=== PATIENT | male | born 1990 ===

== ENCOUNTER 2018-10-17 22:07 | Emergency (ER) | payer SELFPAY ==
[2018-10-17] MEDS ORDERED: DiphenhydrAMINE 50 mg/ml Inj IVP STA (22:33)
[2018-10-17] MEDS ORDERED: methylPREDNISolone 125 MG in Sodium Chloride 0.9% 50 ML IVP STA (22:33)
--- NOTE | 2018-10-17 22:42 | ED PDOC ---
HPI: Allergic Reaction Time Seen by Provider: 10/17/18 22:26 Chief Complaint (Nursing): Allergic Reaction History Per: Patient Additional Complaint(s): Pt. states since Wednesday he's had intermittent pruritic rash throughout his body. Has been taking Benadryl without relief. Today rash began to develop around his face prompting ED visit. Denies SOB, throat swelling, fever, hx of allergic reactions, hx of anaphylactic reactions. Past Medical History Reviewed: Historical Data, Nursing Documentation, Vital Signs Vital Signs: Last Vital Signs Temp 96.7 F L 10/17/18 22:11 Pulse 88 10/17/18 22:11 Resp 18 10/17/18 22:11 BP 139/86 10/17/18 22:11 Pulse Ox 98 10/17/18 22:11 - Family History Family History: States: No Known Family Hx - Home Medications Home Medications: Ambulatory Orders Medication Instructions Recorded Erythromycin 0.5% [Ilytocin] 5 mg OP BID #1 tube 07/14/16 Polymyxin/Trimethoprim Sulfate 100 drop OD BID #1 bottle 07/14/16 [Polytrim Ophth Soln] Methylprednisolone [Medrol Dose 4 mg PO DAILY #21 mg 10/17/18 Pack (21 tabs)] - Allergies Allergies/Adverse Reactions: Allergies Allergy/AdvReac Type Severity Reaction Status Date / Time No Known Allergies Allergy Verified 07/14/16 18:50 Review of Systems ROS Statement: Except As Marked, All Systems Reviewed And Found Negative Skin: Positive for: Rash Physical Exam - Physical Exam Appears: Positive for: Well, Non-toxic, No Acute Distress Skin: Positive for: Normal Color, Warm, Rash (scattered erythematous urticaria with blanching on b/l upper arms, cheeks and some on upper back) ENT: Positive for: Normal ENT Inspection, Other (airway is patent). Negative for: Tonsillar Swelling Cardiovascular/Chest: Positive for: Regular Rate, Rhythm Respiratory: Positive for: Normal Breath Sounds. Negative for: Stridor, Wheezing, Respiratory Distress Neurologic/Psych: Positive for: Alert, Oriented (x3) - ECG O2 Sat by Pulse Oximetry: 98 - Progress ED Course And Treament: Benadryl 50mg IV, solu-medrol 125mg IV, pepcid 20mg IV ordered. Re-evaluation Time: 23:35 (Rash and pruritus resolved. Denies SOB, throat swelling. ) Condition: Re-examined, Improved Disposition - Clinical Impression Clinical Impression: Urticaria - Patient ED Disposition Is Patient to be Admitted: No - Disposition Referrals: [facility] [Outside] Disposition: Routine/Home Disposition Time: 23:36 Condition: IMPROVED Additional Instructions: CONTINUE TAKING BENADRYL 50MG EVERY 6 HOURS NEEDED FOR ITCHING OR RASH FOLLOW UP WITH [facility] FOR FURTHER EVALUATION RETURN TO ED IMMEDIATELY IF SYMPTOMS WORSEN ZANE RUSS, thank you for letting us take care of you today. Your provider was Tatyana Monique MD and you were treated for POSS ALLERGIC REACTION. The emergency medical care you received today was directed at your acute symptoms. If you were prescribed any medication, please fill it and take as directed. It may take several days for your symptoms to resolve. Return to [facility] Emergency Department if your symptoms worsen, do not improve, or if you have any other problems. Please contact your doctor or call one of the physicians/clinics you have been referred to that are listed on the Patient Visit Information form that is included in your discharge packet. Bring any paperwork you were given at discharge with you along with any medications you are taking to your follow up visit. Our treatment cannot replace ongoing medical care by a primary care provider outside of the emergency department. Thank you for allowing the [employer] [facility] team to be part of your care today. If you had an X-Ray or CT scan: A Radiologist will review the ED reading if any change in treatment is needed we will contact you. If you had a blood, urine, or wound culture: It will take several days for the results, if any change in treatment is needed we will contact you. If you had an STI test: It will take 48 hours for the results. Please call after 1 week if you have not heard back. Prescriptions: Methylprednisolone [Medrol Dose Pack (21 tabs)] 4 mg PO DAILY #21 mg Instructions: Marcelinaes (DC) Forms: [employer] (Pashto) Print Language: ICELANDIC
[2018-10-17] MEDS ORDERED: DiphenhydrAMINE 50 mg/ml Inj ONE (22:45)
[2018-10-17 23:44] VITALS: BP 132/71; PULSE 85; RESP 15; TEMP 97.9; O2SAT 100
== END 2018-10-17 23:44 | disposition home or self-care (01) ==
LOC: H.ER 22:07
DX: L50.0 Allergic urticaria (principal)
CPT/HCPCS: 96374; 96375; 99283; J1200; J2930